=== PATIENT | female | born 1990 | race Caucasian/White ===

== ENCOUNTER 2019-11-12 15:33 | Outpatient (CLI) | payer OTHER, SELFPAY ==
--- NOTE | ~2019-11-12 | XR_ITS ---
EXAMINATION: XR knee RT min 4V DATE: 11/12/2019 15:57 INDICATION: Right knee pain and swelling TECHNIQUE: Four views of the right knee were obtained. COMPARISON: None. FINDINGS: Alignment is normal. No fracture or osteochondral lesion. Joint spaces are normal with no e rosions. There is a moderate size knee joint effusion. Soft tissues are unremarkable. IMPRESSION: 1. Moderate size knee joint effusion without acute osseous abnormality. Reviewed, dictated and finalized at location A.
== END 2019-11-12 15:34 | disposition home or self-care (01) ==
PROVIDERS: PCP Family Medicine; Visit Provider Physician Assistant
DX: M25.461 Effusion, right knee (principal)
CPT/HCPCS: 73564

== ENCOUNTER 2020-12-18 13:59 | Outpatient (CLI) | payer OTHER, SELFPAY ==
[2020-12-18] VITALS (7 sets, daily range): BP systolic 105–130; BP diastolic 55–75; PULSE 73–88
[2020-12-18 14:57] LABS: Basophils Percent Auto 0.3 % (0.2-1.2); Eosinophils Absolute Auto 0.1 K/mm3 (0-0.3); Eosinophils Percent Auto 0.8 % (0-4.4); Hematocrit 35.4 % (37.0-47.0); Hemoglobin 11.9 g/dL (12.0-15.0); Immature Granulocyte Absolute 0.12 K/mm3 (0.00-0.031); Immature Granulocyte Percent A 1.1 % (0-0.5); Lymphocytes Percent Auto 17.4 % (18.3-44.2); Mean Corpuscular HGB Conc 33.6 g/dl (32-36); Mean Corpuscular Hemoglobin 31.9 pg (26-34); Mean Corpuscular Volume 94.9 fl (80-100); Mean Platelet Volume 10.1 fl (7.4-10.4); Monocytes Absolute Auto 0.9 K/mm3 (0.1-0.6); Monocytes Percent Auto 7.8 % (2.6-8.5); Neutrophils Percent Auto 72.6 % (45.5-73.1); Platelet Count Result 231 k/mm3 (150-375); Red Blood Count 3.73 M/mm3 (4.2-5.4); Red Cell Distribution Width 13.1 % (11.5-14.5)
[2020-12-18 14:59] LABS: Add Urine Microscopic? YES; Appearance Urine Clear (Clear); Bilirubin Urine Negative (Negative); Blood Urine Negative (Negative); Color Urine Straw (Yellow); Glucose Urine UA Negative (Negative); Ketones Urine Negative (Negative); Leukocyte Esterase Ur Trace LEU/UL (NEGATIVE); Nitrate Urine Negative (Negative); Protein Urine Negative (Negative); RBC Urine 0-2 /hpf (0-2); Specific Grav Ur 1.005 (1.001-1.035); Squamous Epithelial Cell Urine Moderate /hpf (Few); Urobilinogen Urine Negative mg/dL (<2.0); WBC Urine 0-3 /hpf (0-3)
[2020-12-18 15:05] LABS: Creatinine Urine 24.9 mg/dL; Total Protein Urine Random 13 mg/dL; Ur Ttl Prot Creatinine Ratio 0.52 mg/mg (0-0.20)
[2020-12-18 15:08] LABS: Alanine Aminotransferase 22 U/L (4-35); Albumin Level 3.7 g/dL (3.5-5.1); Alkaline Phosphatase 106 U/L (38-126); Anion Gap 7 mmol/L (8-16); Aspartate Amino Transferase 26 U/L (14-36); Bilirubin,Total 0.1 mg/dL (0.2-1.3); Blood Urea Nitrogen 10 mg/dL (7-17); Carbon Dioxide 18 mmol/L (22-30); Chloride 105 mmol/L (98-107); Estimated Glomerular Filt Rate > 60; Glucose 113 mg/dL (65-110); Potassium 3.8 mmol/L (3.4-5.0); Sodium 130 mmol/L (137-145); Uric Acid 4.5 mg/dL (2.5-7.5)
== END 2020-12-18 15:52 | disposition home or self-care (01) ==
LOC: ANHOBOP 14:24 → ANHOBPP 14:24
PROVIDERS: PCP Family Medicine; Visit Provider Advanced Practice Midwife
DX: O13.9 Gestational [pregnancy-induced] hypertension without significant proteinuria, unspecified trimester (principal); Z3A.00 Weeks of gestation of pregnancy not specified
CPT/HCPCS: 36415; 59025; 80053; 81001; 82570; 84156; 84550; 85025; 87086; 99199

== ENCOUNTER 2020-12-19 15:10 | Outpatient (NON) | payer OTHER, SELFPAY ==
[2020-12-19 15:30] VITALS: BMI 29.9
[2020-12-19 16:01] LABS: Collection Time Urine 24 HOURS
[2020-12-19 16:05] LABS: Patient Weight 185 Lbs; Total Volume 24 Hour Urine 3200 ml
[2020-12-19 16:21] LABS: Specific Gravity Ur 1.011
[2020-12-19 16:25] LABS: Creatinine Clearance Urine 122.7 ml/min (75-125); Creatinine Urine 55.4 mg/dL; Total Protein Urine 24 Hr 448 mg/24hr (28-141); Total Protein Urine Random 14 mg/dL
== END 2020-12-19 15:11 | disposition home or self-care (01) ==
LOC: ANHOBOP 15:21
PROVIDERS: PCP Family Medicine; Visit Provider Advanced Practice Midwife
DX: Z34.90 Encounter for supervision of normal pregnancy, unspecified, unspecified trimester (principal); Z3A.00 Weeks of gestation of pregnancy not specified
CPT/HCPCS: 81050; 82575; 84156

== ENCOUNTER 2020-12-22 10:55 | Outpatient (CLI) | payer OTHER, SELFPAY ==
[2020-12-22 11:14] VITALS: BP 122/68; PULSE 93
[2020-12-22 11:30] VITALS: BP 112/65; PULSE 90
[2020-12-22 11:53] LABS: Basophils Percent Auto 0.3 % (0.2-1.2); Eosinophils Absolute Auto 0.1 K/mm3 (0-0.3); Eosinophils Percent Auto 0.8 % (0-4.4); Hemoglobin 12.1 g/dL (12.0-15.0); Immature Granulocyte Absolute 0.16 K/mm3 (0.00-0.031); Immature Granulocyte Percent A 1.4 % (0-0.5); Lymphocytes Absolute Auto 1.79 K/mm3 (0.9-3.2); Lymphocytes Percent Auto 15.6 % (18.3-44.2); Mean Corpuscular HGB Conc 32.7 g/dl (32-36); Mean Corpuscular Volume 94.9 fl (80-100); Mean Platelet Volume 10.1 fl (7.4-10.4); Monocytes Absolute Auto 0.9 K/mm3 (0.1-0.6); Monocytes Percent Auto 8.2 % (2.6-8.5); Neutrophils Absolute Auto 8.5 K/mm3 (1.3-6.7); Neutrophils Percent Auto 73.7 % (45.5-73.1); Platelet Count Result 234 k/mm3 (150-375); Red Cell Distribution Width 13.2 % (11.5-14.5); White Blood Count 11.5 K/mm3 (4.5-10.0)
[2020-12-22 11:54] VITALS: BP 113/67; PULSE 93
[2020-12-22 12:06] LABS: Alanine Aminotransferase 20 U/L (4-35); Albumin Level 3.8 g/dL (3.5-5.1); Alkaline Phosphatase 118 U/L (38-126); Anion Gap 4 mmol/L (8-16); Aspartate Amino Transferase 27 U/L (14-36); Bilirubin,Total 0.4 mg/dL (0.2-1.3); Blood Urea Nitrogen 11 mg/dL (7-17); Calcium 9.2 mg/dL (8.4-10.2); Carbon Dioxide 22 mmol/L (22-30); Chloride 108 mmol/L (98-107); Estimated Glomerular Filt Rate > 60; Glucose 77 mg/dL (65-110); Sodium 134 mmol/L (137-145); Uric Acid 3.9 mg/dL (2.5-7.5)
== END 2020-12-22 12:40 | disposition home or self-care (01) ==
LOC: ANHOBOP 11:00 → ANHOBPP 11:01
PROVIDERS: Advanced Practice Midwife; PCP Family Medicine; Visit Provider Obstetrics & Gynecology
DX: O13.9 Gestational [pregnancy-induced] hypertension without significant proteinuria, unspecified trimester (principal); Z3A.00 Weeks of gestation of pregnancy not specified
CPT/HCPCS: 36415; 59025; 80053; 84550; 85025; 99199

== ENCOUNTER 2020-12-24 00:01 | Inpatient (IN) | payer OTHER, SELFPAY ==
[2020-12-24] VITALS (53 sets, daily range): BP systolic 94–138; BP diastolic 48–113; PULSE 62–101; RESP 16–18; TEMP 36.4–37.3; O2SAT 98–100; BMI 29.9
--- NOTE | 2020-12-24 00:01 | LDADM ---
This patient, Frida Britton, was admitted to Labor/Delivery/Recovery 109 on 12/24/20 at 00:01. Plans for labor, pain management and were discussed with patient. Patient/family oriented to hospital policies and general routines including ID bracelet, bed and alarms, visiting hours, pain management, procedures, bathroom and other care routines, personal items, smoking policy, room service/diet and guest tray routines, security routines, and visiting hours. Patient/Family are encouraged to report perceived risks to care and to ask questions if they do not understand what they are told or what they should do. See OBIX for further documentation.
[2020-12-24 00:45] LABS: Basophils Percent Auto 0.3 % (0.2-1.2); Eosinophils Absolute Auto 0.1 K/mm3 (0-0.3); Eosinophils Percent Auto 0.9 % (0-4.4); Hematocrit 37.4 % (37.0-47.0); Hemoglobin 12.6 g/dL (12.0-15.0); Immature Granulocyte Absolute 0.14 K/mm3 (0.00-0.031); Immature Granulocyte Percent A 1.2 % (0-0.5); Lymphocytes Absolute Auto 2.95 K/mm3 (0.9-3.2); Lymphocytes Percent Auto 25.5 % (18.3-44.2); Mean Corpuscular HGB Conc 33.7 g/dl (32-36); Mean Corpuscular Hemoglobin 31.8 pg (26-34); Mean Corpuscular Volume 94.4 fl (80-100); Mean Platelet Volume 9.9 fl (7.4-10.4); Monocytes Absolute Auto 0.9 K/mm3 (0.1-0.6); Monocytes Percent Auto 8.1 % (2.6-8.5); Neutrophils Absolute Auto 7.4 K/mm3 (1.3-6.7); Platelet Count Result 236 k/mm3 (150-375); Red Blood Count 3.96 M/mm3 (4.2-5.4); White Blood Count 11.6 K/mm3 (4.5-10.0)
[2020-12-24] MEDS: DINOPROSTONE 10 MG VAG INSERT VAGINAL (00:55)
[2020-12-24 01:02] LABS: Glucose Point of Care 110 mg/dl (65-105)
[2020-12-24] MEDS: LACTATED RINGERS 1,000 ML 125 ML IV CONT ×3 (01:05→19:11)
[2020-12-24] MEDS: AMPICILLIN 2 GM/NS 100 ML 2 GM/100 ML BAG IVPB (01:05)
--- NOTE | 2020-12-24 03:31 | WPDANESEPP ---
Anes - Eval Pre Procedure Procedure: Labor epidural Date/Time: 12/24/20 03:31 Surgeon: Iron Preop Diagnosis: Abd pain with contractions Pre Op Diagnosis: IOL Patient Data Age: 30 Gender: F Height: 1.68 m Weight: 84 kg Last Vital Signs Temp 97.5 F L 12/24/20 00:47 Pulse 87 12/24/20 03:15 Resp 18 12/24/20 00:47 BP 103/54 L 12/24/20 03:15 Allergies Allergy/AdvReac Type Severity Reaction Status Date / Time peppermint Allergy Intermediate HIVES, Verified 12/15/20 12:44 swelling of eyes Home Medications Medication Instructions Recorded Confirmed Type cholecalciferol (vitamin D3) 10 10 mcg PO DAILY 12/26/19 12/24/20 History mcg/drop (400 unit/drop) oral drops prenat.vits,raad,xqy-jyof-ntqkw 1 tablet PO DAILY 12/26/19 12/24/20 History aspirin [Aspirin Child] 81 mg PO DAILY 12/24/20 12/24/20 History Laboratory Tests 12/24/20 12/24/20 12/24/20 00:34 00:34 00:34 WBC 11.6 K/mm3 H K/mm3 (4.5-10.0) RBC 3.96 M/mm3 L M/mm3 (4.2-5.4) Hgb 12.6 g/dL g/dL (12.0-15.0) Hct 37.4 % % (37.0-47.0) MCV 94.4 fl fl (80-100) MCH 31.8 pg pg (26-34) MCHC 33.7 g/dl g/dl (32-36) RDW 13.0 % % (11.5-14.5) Plt Count 236 k/mm3 k/mm3 (150-375) MPV 9.9 fl fl (7.4-10.4) Immature Gran % (Auto) 1.2 % H % (0-0.5) Neut % (Auto) 64.0 % % (45.5-73.1) Lymph % (Auto) 25.5 % % (18.3-44.2) [place] % (Auto) 8.1 % % (2.6-8.5) Eos % (Auto) 0.9 % % (0-4.4) Baso % (Auto) 0.3 % % (0.2-1.2) Lymph # (Auto) 2.95 K/mm3 K/mm3 (0.9-3.2) [place] # (Auto) 0.9 K/mm3 H K/mm3 (0.1-0.6) Eos # (Auto) 0.1 K/mm3 K/mm3 (0-0.3) Baso # (Auto) 0.0 K/mm3 K/mm3 (0.0-0.1) Abs Immat Gran (auto) 0.14 K/mm3 H K/mm3 (0.00-0.031) Absolute Neuts (auto) 7.4 K/mm3 H K/mm3 (1.3-6.7) Absolute Nucleated RBC 0.0 K/mm3 K/mm3 (0.0-0.012) Nucleated RBC % 0.0 % % (0.0-0.2) POC Capillary Glucose RPR Pending Blood Type O Positive Antibody Screen Negative 12/24/20 00:47 WBC RBC Hgb Hct MCV MCH MCHC RDW Plt Count MPV Immature Gran % (Auto) Neut % (Auto) Lymph % (Auto) [place] % (Auto) Eos % (Auto) Baso % (Auto) Lymph # (Auto) [place] # (Auto) Eos # (Auto) Baso # (Auto) Abs Immat Gran (auto) Absolute Neuts (auto) Absolute Nucleated RBC Nucleated RBC % POC Capillary Glucose 110 mg/dl H mg/dl (65-105) RPR Blood Type Antibody Screen Patient hx anesthesia problems: none Family hx anesthesia problems: none 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 Family History Family History Father Family history of gout Family history of hypercholesterolemia Mother Family history of diabetes mellitus in first degree relative Grandparent Family history of diabetes mellitus in first degree relative Family history of hypercholesterolemia Heart disease Acute myocardial infarction Social History Social History Smoking status: Never smoker Alcohol intake: current Alcohol use details: a few drinks per year Substance use: never Spiritual care concerns: No Exam Day of Procedure 12/24/20 03:31 Patient weight: overweight Airway: Mallampati scale class II Neurological: alert and oriented
[2020-12-24] MEDS: AMPICILLIN 1 GM/NS 50 ML 1 GM/50 ML BAG IVPB ×4 (05:15→17:31)
[2020-12-24 08:00] LABS: Glucose Point of Care 85 mg/dl (65-105)
[2020-12-24 08:36] LABS: Rapid Plasma Reagin Non-Reactive (NonReactive)
--- NOTE | 2020-12-24 09:10 | WPDOBADMIT ---
Obstetrics - Admit Note Admission Note: record reviewed. No pertinent additions to the history and/or any subsequent changes in the physical findings that are not consistent with the expected course of the were found. MIL, Preeclampsia, asymptomatic, bp normotensive at rest Additions to the history and/or subsequent changes in the physical findings follow. None.
[2020-12-24 09:37] LABS: Glucose Point of Care 86 mg/dl (65-105)
[2020-12-24] MEDS: OXYTOCIN 30 UNITS/NS 500 ML 30 UNITS/500 ML BAG IV CONT (14:03)
[2020-12-24 14:10] LABS: Glucose Point of Care 115 mg/dl (65-105)
--- NOTE | 2020-12-24 17:31 | PM.OBPNLAB ---
Pain Control Date/time seen: 12/24/20 17:31 Pain control: tolerating well Pelvic Exam Dilation (cm): 2 Effacement (%): 60 station: -2 Amniotic membrane status: Ruptured Comments: minimal amount of clear odorless fluid Contractions Monitor mode: External Status status: Category l
[2020-12-24] MEDS: fentaNYL CITRATE INJ (*CRX) 100 MCG/2 ML VIAL 50 MCG IV PUSH (18:57)
--- NOTE | 2020-12-24 20:34 | PM.OBPRVD ---
OB - Delivery Note Procedure Delivery date: 12/24/20 Procedure: vaginal delivery events: Pre-Eclampsia Intrapartal events: None Induction method: AROM, per pitocin protocol and per cervidil protocol Delivery monitor: external FHT and external uterine Route of delivery: Laceration Description: Perineal - 1st Degree Delivery repair: vicryl Anesthesia type: Epidural Disposition: floor [place] Baby Date of : 12/24/20 Time of : 20:11 Weeks of gestation at delivery: 37 Infant gender: Female presentation: vertex position: Left Occiput Anterior Placenta delivery description: Spontaneous cord vessel description: 3 Vessels score one minute: 8 score five minutes: 9 Narrative: mother and baby skin to skin in stable condition
[2020-12-24] MEDS: IBUPROFEN 600 MG TABLET PO (20:58)
[2020-12-24] MEDS: OXYTOCIN 30 UNITS/NS 500 ML 30 UNITS/500 ML BAG 125 UNITS IV CONT (21:10)
[2020-12-25] MEDS: IBUPROFEN 600 MG TABLET PO ×3 (04:19→23:17)
[2020-12-25 04:21] VITALS: BP 111/62; PULSE 65; RESP 14; TEMP 36.7; O2SAT 98
[2020-12-25 05:18] LABS: Hematocrit 30.9 % (37.0-47.0); Hemoglobin 10.5 g/dL (12.0-15.0)
--- NOTE | 2020-12-25 07:45 | PM.OBPNVD ---
OB - PN: Subj Subjective Date/time seen: 12/25/20 07:45 Patient comments: no complaints baby status: doing well [place] feeding status: exclusively breast feeding OB - PN: Obj Data Labs CBC & Chem 7: 12/25/20 04:35 Labs: Laboratory Results - last 24 hr 12/24/20 12/24/20 12/24/20 00:34 07:57 09:28 Hgb Hct POC Capillary Glucose 85 86 RPR Non-reactive 12/24/20 12/25/20 14:01 04:35 Hgb 10.5 L Hct 30.9 L POC Capillary Glucose 115 H RPR OB - PN A/P Plan day: 1 Plan: routine care Time Spent With Patient Time: Total time spent is greater than 50% in coordination of care (as documented) at patient's floor/unit and/or counseling patient: Review of Systems Review of Systems: All systems reviewed & are unremarkable except as noted in HPI and below Exam Const: General: cooperative Psych: Attitude: cooperative Thought process: Normal thought process present Thought content: Yes Normal thought content present Insight: Good insight present (Psych) Judgement: Good judgement present (Psych)
[2020-12-25] MEDS: MULTIVIT/MIN/PREN/FOL AC/IRON TABLET 1 TAB PO (07:59)
[2020-12-25] MEDS: DOCUSATE SODIUM 100 MG CAPSULE PO (07:59)
[2020-12-25 08:45] VITALS: BP 121/66; PULSE 71; RESP 16; TEMP 36.4; O2SAT 99
[2020-12-25 11:48] VITALS: BP 113/67; PULSE 66; RESP 16; TEMP 36.6; O2SAT 97
--- NOTE | 2020-12-25 15:15 | WPDANLDPN2 ---
Anes-Prog Note L&D Date/Time: 12/25/20 15:15 Comfortable throughout: labor and delivery Neuraxial method: epidural Epidural/Spinal procedure site: clean & non-tender Neuro status: Neuro function grossly intact. Cardiovascular status: normal Respiratory status: normal Airway patency: baseline Mental status: baseline Post-Op hydration status: normal Vital Signs: Last Vital Signs Temp 36.6 C 12/25/20 11:48 Pulse 66 12/25/20 11:48 Resp 16 12/25/20 11:48 BP 113/67 12/25/20 11:48 Pulse Ox 97 12/25/20 11:48 Pain score (VAS): 05/24 I/O: Intake & Output 12/24/20 12/25/20 12/25/20 23:59 07:59 15:59 Intake Total 2350 300 1000 Output Total 490 1000 1000 Balance 1860 -700 0 Post-procedural complaints: none Patient feedback: Patient satisfied with anesthetic care.
[2020-12-25 16:35] VITALS: BP 117/66; PULSE 73; RESP 18; TEMP 36.2
[2020-12-25 20:00] VITALS: BP 126/71; PULSE 79; RESP 16; TEMP 36.1; O2SAT 98
--- NOTE | 2020-12-25 20:00 | PC.NURSE ---
Patient viewed the discharge video Mother & Baby Care, The First Two Weeks online. Patient was given the opportunity and encouraged to ask questions. Patient verbalized understanding of information shared and has been given the mother/baby guide for home reference.
[2020-12-25 23:18] VITALS: BP 117/68; PULSE 77
[2020-12-26 03:08] VITALS: BP 116/58; PULSE 55
[2020-12-26 08:10] VITALS: BP 105/64; PULSE 58; RESP 16; TEMP 36.5; O2SAT 98
--- NOTE | 2020-12-26 08:45 | P.PNOB_ITS ---
OB - PN: Subj Subjective Date/time seen: 12/26/20 08:45 Patient comments: no complaints baby status: doing well and nursing well [place] feeding status: exclusively breast feeding OB - PN: Obj Data Labs CBC & Chem 7: 12/25/20 04:35 OB - PN A/P Assessment and Plan (1) , delivered: Code(s): O80 - Encounter for full-term uncomplicated delivery Status: Acute (2) Gestational hypertension: Code(s): O13.9 - Gestational [-induced] hypertension without significant proteinuria, unspecified trimester Status: Inactive Plan day: 2 Plan: routine care and discharge home Comments: BP check 1 week. Time Spent With Patient Time: Total time spent is greater than 50% in coordination of care (as documented) at patient's floor/unit and/or counseling patient: Time with patient: less than 15 minutes Exam Narrative: NAD abdomen soft, nontender, fundus firm below the umbilicus Extremities nontender, 1+ edema
--- NOTE | 2020-12-26 08:48 | PM.DS ---
DS: Admitting Diagnosis Admitting Diagnosis PIH, IOL DS: Discharge Diagnosis Discharge Diagnosis (1) , delivered: Code(s): O80 - Encounter for full-term uncomplicated delivery Status: Acute (2) Gestational hypertension: Code(s): O13.9 - Gestational [-induced] hypertension without significant proteinuria, unspecified trimester Status: Acute DS: Summary Hospital Course Reason for hospitalization: IOL for PIH Hospital Course: Frida was admitted for IOL for PIH with elevated BPs in office at term. She had an uncomplicated induction, delivery, and course with normal BPs. Status at Discharge Functional status at discharge: independent ambulation Time Spent with Patient Time attestation: Total time spent providing and/or coordinating discharge services: Time spent: Less than 30 minutes DS: Data Data Completed and Pending Pending studies at discharge: Pending at discharge 12/24/20 20:11 Surgical [PTH] Routine Discharge Plan Discharge Attending physician on discharge: Mary Viera Discharging Clinician: Mary Viera Anticipated Discharge Date/Time: 12/26/20 12:00 Patient Disposition: Home, Self-Care Activity: pelvic rest Diet: as tolerated Patient Instructions: Antibiotic Form Stand Alone Forms: General Discharge Information Follow-up/Referrals: Rock Perdue MD [Physician] - 1 Week Discharge Medications: Continued cholecalciferol (vitamin D3) [Baby Vitamin D3] 10 mcg/drop (400 unit/drop) drops 10 mcg PO DAILY RF: 0 prenat.vits,raad,lbk-wiov-ytyne Tablet 1 tablet PO DAILY RF: 0 Discontinued aspirin [Aspirin Child] 81 mg Tablet,Chewable 81 mg PO DAILY RF: 0 Date of admission: 12/24/20 00:01 Primary Care Provider: Zita Adorno Admitting Provider: Rock Perdue Attending physician on admission: Rock Perdue Condition: Stable
[2020-12-26] MEDS: BENZOCAINE 20% AER SPR (*SP) 56 GM CAN 1 SPRAY TOPICAL (10:11)
[2020-12-26] MEDS: DOCUSATE SODIUM 100 MG CAPSULE PO (10:11)
[2020-12-26] MEDS: LANOLIN (LANSINOH) 7.5 GM CREAM 1 APPLIC TOPICAL (10:12)
[2020-12-26] MEDS: WITCH HAZEL 40 PADS 1 PAD TOPICAL (10:12)
[2020-12-26] MEDS: IBUPROFEN 600 MG TABLET PO (10:12)
[2020-12-26 10:15] VITALS: PULSE 58; RESP 16; O2SAT 98
[2020-12-28 10:08] VITALS: BP 119/62; PULSE 72; RESP 16; TEMP 36.9; O2SAT 98
== END 2020-12-26 13:10 | disposition home or self-care (01) | DRG 807 ==
LOC: ANHOB2 12-26 08:48 → ANHLDR 12-28 11:40 → ANHOB2 12-28 11:40
PROVIDERS: Advanced Practice Midwife; Admitting Provider Obstetrics & Gynecology; PCP Family Medicine; Visit Provider Obstetrics & Gynecology
DX: O14.94 Unspecified pre-eclampsia, complicating childbirth (principal); Z37.0 Single live birth; Z3A.37 37 weeks gestation of pregnancy; O70.0 First degree perineal laceration during delivery; O99.824 Streptococcus B carrier state complicating childbirth; O62.3 Precipitate labor; O24.420 Gestational diabetes mellitus in childbirth, diet controlled
CPT/HCPCS: 36415; 59025; 80053; 82948; 84550; 85014; 85018; 85025; 86592; 86850; 86900; 86901; 88307; 99199; A9270; J0290; J2590; J2795; J3010; J7120

== ENCOUNTER → 2021-04-13 08:59 | Outpatient (REF) | payer OTHER, SELFPAY | LOC: ANHLAB 08:59 | PROVIDERS: PCP Family Medicine; Visit Provider Nurse Practitioner | DX: D22.4 Melanocytic nevi of scalp and neck (principal) | CPT/HCPCS: 88305 ==

== ENCOUNTER 2021-07-26 22:52 | Emergency (ER) | payer OTHER, SELFPAY ==
--- NOTE | ~2021-07-26 | XR_ITS ---
XR chest 2V DATE: 07/26/2021 23:59 INDICATION: Chest pain TECHNIQUE: PA and lateral views COMPARISON: None FINDINGS: Normal heart size. No hilar or mediastinal enlargement. No pulmonary infiltrate or consolid ation, pleural effusion or pulmonary vascular congestion or pneumothorax. Mild upper thoracic levoscoliosis. IMPRESSION: No active cardiopulmonary disease Reviewed, dictated and finalized at location A.
[2021-07-26 23:00] VITALS: BP 133/89; PULSE 72; RESP 14; TEMP 36.8; O2SAT 99
--- NOTE | 2021-07-26 23:05 | ECG_ITS ---
Measurements Intervals [place] Rate: 72 P: 45 HI: 146 QRS: 78 QRSD: 102 T: 53 QT: 399 QTc: 439 Interpretive Statements SINUS RHYTHM NORMAL EKG NO PREVIOUS ECG AVAILABLE FOR COMPARISON Electronically Signed On 07-27-2021 18:12:29 CDT by Tiffany Gregory M.D.
[2021-07-26 23:51] LABS: Basophils Percent Auto 0.4 % (0.2-1.2); Eosinophils Absolute Auto 0.2 K/mm3 (0-0.3); Eosinophils Percent Auto 1.7 % (0-4.4); Hematocrit 37.7 % (37.0-47.0); Hemoglobin 12.3 g/dL (12.0-15.0); Immature Granulocyte Absolute 0.03 K/mm3 (0.00-0.031); Immature Granulocyte Percent A 0.3 % (0-0.5); Lymphocytes Absolute Auto 3.73 K/mm3 (0.9-3.2); Lymphocytes Percent Auto 40.3 % (18.3-44.2); Mean Corpuscular HGB Conc 32.6 g/dl (32-36); Mean Corpuscular Hemoglobin 31.1 pg (26-34); Mean Corpuscular Volume 95.4 fl (80-100); Mean Platelet Volume 10.1 fl (7.4-10.4); Monocytes Absolute Auto 0.9 K/mm3 (0.1-0.6); Monocytes Percent Auto 9.8 % (2.6-8.5); Neutrophils Absolute Auto 4.4 K/mm3 (1.3-6.7); Neutrophils Percent Auto 47.5 % (45.5-73.1); Platelet Count Result 283 k/mm3 (150-375); Red Blood Count 3.95 M/mm3 (4.2-5.4); White Blood Count 9.3 K/mm3 (4.5-10.0)
[2021-07-26 23:57] LABS: Alanine Aminotransferase 19 U/L (4-35); Albumin Level 4.5 g/dL (3.5-5.1); Alkaline Phosphatase 69 U/L (38-126); Anion Gap 9 mmol/L (8-16); Aspartate Amino Transferase 26 U/L (14-36); Bilirubin,Total 0.1 mg/dL (0.2-1.3); Blood Urea Nitrogen 22 mg/dL (7-17); Calcium 8.5 mg/dL (8.4-10.2); Carbon Dioxide 25 mmol/L (22-30); Chloride 104 mmol/L (98-107); Estimated CRCL calculation 89 ml/min; Estimated Glomerular Filt Rate > 60; Glucose 97 mg/dL (65-110); INR 1.1; Lipase 84 U/L (23-300); Partial Thromboplastin Time 35.3 SECONDS (22.3-36.8); Potassium 3.7 mmol/L (3.4-5.0); Prothrombin Time 13.6 Seconds (11.1-14.7); Sodium 138 mmol/L (137-145)
[2021-07-27 00:07] LABS: Troponin I < 0.012 ng/mL (0.000-0.034)
--- NOTE | 2021-07-27 00:21 | ED.CHESTPAIN ---
HPI - Chest Pain General Chief Complaint: Chest Pain Stated Complaint: CP Time Seen by Provider: 07/26/21 23:42 Source: patient History of Present Illness HPI narrative: Patient presents with intermittent chest pain. Symptom has been present for approximately the last 2 to 3 days. She most notes that at night when laying flat has been alleviated with sitting up. Is not associated with shortness of breath nausea vomiting or diaphoresis. She has not noted any increase with physical activity. She denies any significant family history of cardiac disease, denies any recent hospitalizations session therapy use, prior history of blood clots Related Data Allergies Allergy/AdvReac Type Severity Reaction Status Date / Time No Known Allergies Allergy Verified 07/27/21 01:02 Review of Systems Review of Systems: CONSTITUTIONAL: Denies fever, chills, or sweats. EYES: Denies visual changes, redness, or discharge. ENT: Denies rhinorrhea, congestion, sore throat, or otalgia. CARDIOVASCULAR: Denies chest pain, palpitations, or edema. RESPIRATORY: Denies cough or dyspnea. GASTROINTESTINAL: Denies abdominal pain, nausea, vomiting, or diarrhea. GENITOURINARY: Denies dysuria or hematuria. SKIN: Denies rash or itching. MUSCULOSKELETAL: Denies back pain, joint pain, or myalgia. NEUROLOGIC: Denies headache, numbness, dizziness, or weakness. PSYCHIATRIC: Denies anxiety or depression. All systems reviewed & are unremarkable except as noted in HPI and below PMFSH Past Medical History Medical History (Updated 07/27/21 @ 01:28 by Anil Bhatt MD) Patient denies significant medical history Social History Social History (Updated 07/27/21 @ 00:24 by Anil Bhatt MD) Living arrangements: with family Exam Narrative: GENERAL: Well-appearing, well-nourished, and in no acute distress. HEAD: Normocephalic, atraumatic. EYES: PERRLA and EOMI. ENT: Nares clear, no rhinorrhea or epistaxis. Mucous membranes moist. NECK: Supple. No masses. No JVD CHEST: Clear to auscultation. No respiratory distress. No wheezes rales or rhonchi HEART: Regular rate and rhythm. No murmur heard. Normal peripheral pulses. ABDOMEN: Soft, nontender, nondistended, normal active bowel sounds. EXTREMITIES: Normal range of motion. No edema. SKIN: Warm, dry, no rash. NEURO: No focal deficits. Alert and oriented x3. PSYCH: Normal mood and affect. Course Reevaluation(s) Reevaluation #1: Patient is resting comfortably results and plan reviewed with patient. Patient is comfortable outpatient plan. Date: 07/27/21 Time: 01:26 Vital Signs Vital signs: Vital Signs Temperature 36.8 C 07/26/21 23:00 Pulse Rate 72 07/26/21 23:00 Respiratory Rate 14 07/26/21 23:00 Blood Pressure 133/89 07/26/21 23:00 Pulse Oximetry 99 07/26/21 23:00 Temperature 36.8 C 07/26/21 23:00 Pulse Rate 60 07/27/21 01:55 Respiratory Rate 15 07/27/21 01:55 Blood Pressure 111/63 07/27/21 01:55 Pulse Oximetry 99 07/27/21 01:55 MDM - Chest Pain MDM Narrative Medical decision making narrative: H&P as above, vss, pt looks clinically well, exam reassuring, labs clinically unremarkable, img without acute process, additional labs/img considered, symptomatic relief available as needed, on reevaluation pt continues to looks clinically well. Suspect reflux, dns ACS, PE, dissection, pneumothorax. plan to tx/monitor as op w/ pcm f/u findings/plan discussed with pt, pt agree/comfortable with plan, return precautions given Lab Data Result diagrams: 07/26/21 23:20 07/26/21 23:20 Labs: Lab Results 07/26/21 07/26/21 07/26/21 Range/Units 23:20 23:20 23:20 WBC 9.3 (4.5-10.0) K/mm3 RBC 3.95 L (4.2-5.4) M/mm3 Hgb 12.3 (12.0-15.0) g/dL Hct 37.7 (37.0-47.0) % MCV 95.4 (80-100) fl MCH 31.1 (26-34) pg MCHC 32.6 (32-36) g/dl RDW 12.0 (11.5-14.5) % Plt Count 283 (150-375) k/mm3 MPV 10.1 (7.4-10.4
[2021-07-27] MEDS: MAG HYDROX/AL HYDROX/SIMETH 30 ML UDC PO (01:08)
[2021-07-27 01:13] VITALS: PULSE 70
[2021-07-27 01:55] VITALS: BP 111/63; PULSE 60; RESP 15; O2SAT 99
== END 2021-07-27 01:59 | disposition home or self-care (01) ==
PROVIDERS: Emergency Provider Emergency Medicine; PCP Family Medicine
DX: R07.89 Other chest pain (principal); K21.00 Gastro-esophageal reflux disease with esophagitis, without bleeding
CPT/HCPCS: 36415; 71046; 80053; 81025; 83690; 84484; 85025; 85610; 85730; 93005; 99284; A9270

== ENCOUNTER 2021-08-12 07:44 | Outpatient (CLI) | payer OTHER, SELFPAY ==
--- NOTE | 2021-08-12 07:50 | ECHO_ITS ---
Patient Info Name: Frida Britton Age: 31 years : 1990 Gender: Female Ht: 66 in Wt: 158 lbs BSA: 1.84 m2 HR: 60 bpm BP: 118 / 85 mmHg Technical Quality: Good Exam Date: 08/12/2021 8:31 AM Exam Location: [facility] Patient Status: Outpatient Admit Date: 08/12/2021 Staff Ordering Physician: Zita Adorno MD General Internal Medicine Doctor: Aleyda Valencia RDCS Attending Provider: Zita Adorno MD Referring Physician: Tila DANIEL; Exam Type: CA echo doppler color flow Study Info Indications R55 - Syncope and collapse Complete two-dimensional, color flow and Doppler transthoracic echocardiogram is performed. Summary 1. Complete two-dimensional, color flow and Doppler transthoracic echocardiogram is performed. 2. Left ventricular chamber dimension is normal. 3. Left ventricular systolic function is normal, estimated at 60-65%. 4. The left ventricular diastolic function is normal. 5. E/e' 5 is not elevated. 6. Global longitudinal strain is normal at -19.2%. 7. No pulmonary hypertension, estimated pulmonary arterial systolic pressure is 27 mmHg. Left Ventricle E/e' 5 is not elevated. Global longitudinal strain is normal at -19.2%. Left ventricular chamber dimension is normal. Left ventricular systolic function is normal, estimated at 60-65%. The left ventricular diastolic function is normal. Right Ventricle Right ventricular chamber dimension is normal. Right ventricular systolic function is normal. Left Atria Left atrial chamber dimension is normal. Right Atria Right atrial chamber dimension is normal. Aortic Valve The aortic valve is trileaflet. There is no aortic valve stenosis. There is no aortic valve regurgitation. Pulmonic Valve There is no pulmonic regurgitation. Mitral Valve There is no mitral valve stenosis. There is no mitral valve regurgitation. Tricuspid Valve There is no tricuspid valve regurgitation. No pulmonary hypertension, estimated pulmonary arterial systolic pressure is 27 mmHg. Pericardium/Pleural There is no pericardial effusion. Inferior Vena Cava Normal inferior vena cava with >50% collapse upon inspiration consistent with normal right atrial pressure, 5 mmHg. Aorta The aortic root size at the sinus of Valsalva is normal. Left Ventricular Outflow Tract Name Value Normal LVOT 2D LVOT Diameter 2.0 cm LVOT Doppler LVOT Peak Gradient 3 mmHg LVOT Mean Gradient 2 mmHg LVOT VTI 19 cm LVOT VTI/AV VTI Ratio 0.9 LVOT Stroke Volume 58 ml LVOT CO 3.8 l/min LVOT CI 2.1 l/min/m2 Pulmonic Valve Name Value Normal RVOT Doppler RVOT Peak Gradient 3 mmHg
== END 2021-08-12 07:45 | disposition home or self-care (01) ==
LOC: ANHCARD 07:46
PROVIDERS: PCP Family Medicine; Visit Provider Family Medicine
DX: R55 Syncope and collapse (principal)
CPT/HCPCS: 93306

== ENCOUNTER 2021-08-17 10:37 | Outpatient (CLI) | payer OTHER, SELFPAY ==
--- NOTE | 2021-08-20 12:25 | WPDHOLTEREM ---
Holter/Event Monitor Holter/Event Monitor Date of procedure: 08/17/21 Holter/Event Procedure: 48 Hr Holter Monitor Indications: Syncope Conclusion: 1. 48 hour holter monitor on 08/17/21. 2. Underlying rhythm is sinus rhythm. HR range 42-152 bpm; average HR 77 bpm. 3. There are 1 premature supraventricular complex and 1 supraventricular couplet. No supraventricular tachycardia. 4. There are 2 premature ventricular complexes. No ventricular tachycardia. 5. No sinoatrial or atrioventricular blocks. No significant pauses greater than 2 seconds. 6. Patient reports symptoms of dizziness which demonstrate sinus rhythm, HR range 96-102 bpm.
== END 2021-08-17 10:38 | disposition home or self-care (01) ==
PROVIDERS: PCP Family Medicine; Visit Provider Family Medicine
DX: R55 Syncope and collapse (principal)
CPT/HCPCS: 93225; 93226

== ENCOUNTER 2021-10-02 14:40 | Emergency (ER) | payer OTHER, SELFPAY ==
--- NOTE | ~2021-10-02 | XR_ITS ---
EXAMINATION: XR chest 2V Exam Date/Time: 10/02/2021 15:08 CDT HISTORY: CHEST PAIN, COUGH; recent exp to mold; hx of asthma as child Comparison: None available. RESULT: Lines, tubes, and devices: None. Lungs and pleura: Clear. Cardiomediastinal silhouette: Stable cardiomediastinal silhouette. Other: No acute osseous or upper abdominal finding. IMPRESSION: No acute cardiopulmonary process. Reviewed, dictated and finalized at location K.
[2021-10-02 14:47] VITALS: BP 128/88; PULSE 80; RESP 12; TEMP 36.2; O2SAT 100
--- NOTE | 2021-10-02 15:08 | ECG_ITS ---
Measurements Intervals [place] Rate: 62 P: 50 [place]: 132 QRS: 80 QRSD: 93 T: 69 QT: 378 QTc: 384 Interpretive Statements SINUS RHYTHM NORMAL ECG Electronically Signed On 10-03-2021 7:48:34 CDT by Rafi Nguyễn D.O.
--- NOTE | 2021-10-02 15:16 | ED.GENADULT ---
HPI - General Adult General Chief complaint: Upper Respiratory Infection Stated complaint: possible mildew exposure Source: patient Mode of arrival: ambulatory Limitations: no limitations History of Present Illness HPI narrative: Patient presents for evaluation of chest pain and cough. She indicates that she was in a basement last night that had mold and mildew. She noted a cough last night. Today she has noted persistent cough, has noted she does not fully get air with inspiration and has some intermittent right sided chest pain. Pt had COVID in May of this year. In July, she began having right sided chest pain. Pain feels like a sharp pinching sensation. She had an EKG which was normal, ECHO which was normal and also wore a 48 hr phototypesetting equipment monitor which she states was normal with a occasional PVC's. She does not feel particularly SOB. She thought that the symptoms she experienced in July may have been 2/2 peppermint oil. Neither she nor her smoke cigarettes or marijuana. She had asthma as a child but thought that she outgrew that. Related Data Home Medications Medication Instructions Recorded Confirmed cholecalciferol (vitamin D3) 10 10 mcg PO DAILY 12/26/19 10/02/21 mcg/drop (400 unit/drop) oral drops prenat.vits,raad,pws-iuxt-ayiiu 1 tablet PO DAILY 12/26/19 10/02/21 Allergies Allergy/AdvReac Type Severity Reaction Status Date / Time peppermint Allergy Intermediate HIVES, Verified 10/02/21 14:48 swelling of eyes Review of Systems Review of Systems: CONSTITUTIONAL: Denies fever, chills, or sweats. EYES: Denies visual changes, redness, or discharge. ENT: Denies rhinorrhea, congestion, sore throat, or otalgia. CARDIOVASCULAR: Reports intermittent right sided chest pain. Denies palpitations, or edema. RESPIRATORY: Reports cough and sensation that she is not fully getting air with inspiration. GASTROINTESTINAL: Denies abdominal pain, nausea, vomiting, or diarrhea. GENITOURINARY: Denies dysuria or hematuria. SKIN: Denies rash or itching. MUSCULOSKELETAL: Denies back pain, joint pain, or myalgia. NEUROLOGIC: Denies headache, numbness, dizziness, or weakness. PSYCHIATRIC: Denies anxiety or depression. 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 Tinea corporis Surgical History Surgical History History of removal of cyst History of removal of skin mole Family History Family History Father Family history of gout Family history of hypercholesterolemia Mother Family history of diabetes mellitus in first degree relative Grandparent Family history of diabetes mellitus in first degree relative Family history of hypercholesterolemia Heart disease Acute myocardial infarction Social History Social History Alcohol intake: current Alcohol use details: a few drinks per year Substance use: never Spiritual care concerns: No Exam Narrative: GENERAL: Well-appearing, well-nourished, and in no acute distress. HEAD: Normocephalic, atraumatic. EYES: PERRLA and EOMI. ENT: Nares clear, no rhinorrhea or epistaxis. Mucous membranes moist. Oropharynx without tonsillar hypertrophy exudate or other lesions. Bilateral TMs pearly sabillon nonbulging NECK: Supple. No adenopathy or masses. No carotid bruits or JVD CHEST: Clear to auscultation. No respiratory distress. No wheezes rales or rhonchi HEART: Regular rate and rhythm. No murmur heard. Normal peripheral pulses. ABDOMEN
== END 2021-10-02 16:25 | disposition home or self-care (01) ==
PROVIDERS: Emergency Provider Nurse Practitioner; PCP Family Medicine
DX: Z77.120 Contact with and (suspected) exposure to mold (toxic) (principal); R07.9 Chest pain, unspecified; J45.909 Unspecified asthma, uncomplicated; Z86.16 Personal history of COVID-19
CPT/HCPCS: 71046; 93005; 99213; G0463

== ENCOUNTER 2021-10-23 16:36 | Emergency (ER) | payer OTHER, SELFPAY ==
[2021-10-23 16:55] VITALS: BP 134/87; PULSE 84; RESP 16; TEMP 36.1; O2SAT 99
--- NOTE | 2021-10-23 16:55 | ED.URI ---
HPI - URI/Sore Throat General Chief Complaint: Upper Respiratory Infection Stated Complaint: sore throat, ear pain Time Seen by Provider: 10/23/21 16:55 Source: patient, RN notes reviewed and old records reviewed Mode of arrival: ambulatory Limitations: no limitations History of Present Illness HPI Narrative: 31 year old female who presents to [facility] care with complaints of experiencing some congestion with scratchy throat and itchy ears which started today. Patient reports no fevers, chills or sweats, denies any acute cough or any shortness of breath. Patient has not taken any OTC medications for her symptoms. Patient does have history of asthma and has inhaler at home but has not had to use it for her present complaint. MD elicited complaint: sore throat and other (ear pain) Onset (ago): hour(s) (8 hours) Treatments prior to arrival: none Related Data Home Medications Medication Instructions Recorded Confirmed cholecalciferol (vitamin D3) 10 10 mcg PO DAILY 12/26/19 10/02/21 mcg/drop (400 unit/drop) oral drops (Baby Vitamin D3) prenat.vits,raad,iur-hpxe-bewab 1 tablet PO DAILY 12/26/19 10/02/21 Allergies Allergy/AdvReac Type Severity Reaction Status Date / Time peppermint Allergy Intermediate HIVES, Verified 10/02/21 14:48 swelling of eyes Review of Systems Review of Systems: CONSTITUTIONAL: Denies fever, chills, or sweats. EYES: Denies visual changes, redness, or discharge. ENT: Reports some rhinorrhea, congestion,scratchy throat, itchy ears. CARDIOVASCULAR: Denies chest pain, palpitations, or edema. RESPIRATORY: Denies cough or dyspnea. GASTROINTESTINAL: Denies abdominal pain, nausea, vomiting, or diarrhea. GENITOURINARY: Denies dysuria or hematuria. SKIN: Denies rash or itching. MUSCULOSKELETAL: Denies back pain, joint pain, or myalgia. NEUROLOGIC: Denies headache, numbness, or weakness. PSYCHIATRIC: Denies anxiety or depression. 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 Tinea corporis Surgical History Surgical History History of removal of cyst History of removal of skin mole Family History Family History Father Family history of gout Family history of hypercholesterolemia Mother Family history of diabetes mellitus in first degree relative Grandparent Family history of diabetes mellitus in first degree relative Family history of hypercholesterolemia Heart disease Acute myocardial infarction Social History Social History Alcohol intake: current Alcohol use details: a few drinks per year Substance use: never Spiritual care concerns: No Comments At time of signature, agree with nursing past medical, surgical, social and family history. There is no relevant family history pertinent to the presenting complaint Exam Narrative: GENERAL: Well-appearing, well-nourished, and in no acute distress. HEAD: Normocephalic, atraumatic. EYES: PERRLA and EOMI. ENT: Nares clear, clear rhinorrhea no epistaxis. Mucous membranes moist.TM's normal with good light reflex, throat pink with no lesions or exudates, tonsils enlarged with no redness or swelling, some post nasal drainage noted to back of throat NECK: Supple. no lymphadenopathy CHEST: Clear to auscultation. No respiratory distress.SAO2 99% on room air HEART: Regular rate and rhythm. No murmur heard. Normal peripheral pulses. ABDOMEN: Soft, nontender, nondistended, normal active bowel sounds. EXTREMITIES: Normal range of motion. No edema.
== END 2021-10-23 17:37 | disposition home or self-care (01) ==
PROVIDERS: Emergency Provider Registered Nurse; PCP Family Medicine
DX: J06.9 Acute upper respiratory infection, unspecified (principal); J45.909 Unspecified asthma, uncomplicated
CPT/HCPCS: 99211; G0463

== ENCOUNTER → 2022-08-08 07:01 | Outpatient (CLI) | payer OTHER, SELFPAY ==
--- NOTE | ~2022-08-08 | MR_ITS ---
MRI of the brain Clinical History: Headache Technique: Axial and sagittal T1-weighted images were acquired. These were followed by axial T2-weigh zeina, diffusion weighted, gradient, and FLAIR images. Findings: No abnormal signal seen in the brain parenchyma. No acute infarct, intracranial hemorrhage, or mass lesion. Ventricles and subarachnoid spaces are unremarkable. Orbits are unremarkable. Paranasal sinuses and m astoid air cells are clear. Major intracranial flow voids are intact. Sagittal midline structures are intact. IMPRESSION: Unremarkable exam. Reviewed, dictated and finalized at location M. IMPRESSION: Unremarkable exam.
== END ==
PROVIDERS: PCP Family Medicine; Visit Provider Physician Assistant
DX: R51.9 Headache, unspecified (principal)
CPT/HCPCS: 70551

== ENCOUNTER 2024-11-07 16:14 | Emergency (ER) | payer OTHER, SELFPAY ==
--- NOTE | 2024-11-07 16:16 | ED.URI ---
HPI - URI/Sore Throat General Chief Complaint: Upper Respiratory Infection Stated Complaint: fever Time Seen by Provider: 11/07/24 16:16 Source: patient Mode of arrival: ambulatory Limitations: no limitations History of Present Illness HPI Narrative: Patient is a 34-year-old female who presents with intermittent fever, sore throat, fatigue, body aches and left ear pain for 2 days. Highest fever of 100.8. States ear pain has improved today but still feels muffled. Has used throat spray and gargled with cayenne pepper. Has not taken any Tylenol or ibuprofen. Family members also have similar symptoms Related Data Allergies Allergy/AdvReac Type Severity Reaction Status Date / Time peppermint Allergy Intermediate HIVES, Verified 11/07/24 16:30 swelling of eyes Review of Systems Review of Systems: All systems reviewed & are unremarkable except as noted in HPI and below Constitutional: Constitutional: Reports body ache(s), Denies chills, Reports fatigue, Reports fever(s), Denies headache(s), Denies malaise and Denies weakness Eyes: Eyes: Denies blurry vision, Denies irritation and Denies loss of vision ENT: Reports otalgia, Denies headache(s), Denies nasal discharge, Denies sinus pain and Reports sore throat Cardiovascular: Cardiovascular: Denies chest pain, Denies irregular heart rhythm and Denies dyspnea Respiratory: Respiratory: Denies dyspnea Gastrointestinal: Gastrointestinal: Denies abdominal pain, Denies melena, Denies hematochezia, Denies diarrhea, Denies nausea and Denies vomiting Musculoskeletal: Musculoskeletal: Denies back pain, Denies myalgias and Denies arthralgias Integumentary/Breasts: Skin/Breast: Denies pruritus and Denies rash Neurologic: Denies headache(s), Denies loss of vision and Denies weakness Psychiatric: Psychiatric: Reports no additional psychiatric complaints Endocrine: Endocrine: Denies fatigue Allergic/Immunologic: Allergic/Immunologic: Denies itchy eyes PMFSH Past Medical History Medical History Asthma Tinea corporis 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 , delivered Overweight (BMI 25.0-29.9) History of pre-eclampsia Gestational hypertension Gestational diabetes Chondromalacia of patella, right Patellar instability of both knees Surgical History Surgical History History of removal of cyst History of removal of skin mole Family History Family History Father Family history of gout Family history of hypercholesterolemia Mother Family history of diabetes mellitus in first degree relative Grandparent Family history of diabetes mellitus in first degree relative Family history of hypercholesterolemia Heart disease Acute myocardial infarction Social History Social History Smoking status: Never smoker Alcohol intake: current Substance use: never Substance use type: does not use Do You Feel Safe in your Home?: Yes Lack of Transportation: No Lack of Food: Never True Current Housing: I Have Housing Concerned About Future Housing: No Difficulty Paying Gas/Electric Bills: No Difficulty Paying for Meds: No Currently Unemployed: No Education: Bachelor's Degree Difficulty w/ Childcare or Family Care: No Living arrangements: with family Spiritual care concerns: No Comments At time of signature, agree with nursing past medical, surgical, social and family history. There is no relevant family history pertinent to the presenting complaint. Exam Const: General: cooperative, healthy appearing, comfortable, no acute distress and well nourished Nutritional Appearance: well nourished Orientation/consciousness: patient oriented x3 Limitations: no limitations HENMT: Head: normal to inspection, normocephalic and atraumatic Ears: hearing grossly normal bilaterally, external ears normal and TM abnormal wth effusion serous bilateral Face/Nose/Sinus: Normal external nose present, normal facial exam and face symmetric Face and sinus: normal facial exam and face symmetric Mouth: Yes lip normal Teeth and gingiva: dentition normal Throat: posterior oropharynx normal, uvula midline and abnormal tonsil bilateral hypertrophy 3+ and pitting Eyes: General: appearance normal, both eyes and all related structures Alignment and Position: alignment normal and position normal Periorbital: periorbital findings normal Eyelids: eyelids normal Pupils: Equal, round and reactive pupils present EOM: EOMs intact bilaterally Neck: Neck: normal visual inspection, full ROM and supple Chest: Chest palpation & inspection: normal inspection of the chest Resp: Effort & Inspection: normal respiratory effort and able to speak in complete sentences Auscultation: clear to auscultation bilaterally Cardio: Rate: regular rate Rhythm: regular rhythm Heart sounds: S1 normal heart sound present and S2 normal heart sound present GI: Inspection: normal to inspection Skin: General skin exam: normal color and no rashes or lesions noted Neuro: General: patient oriented x3 and moves all extremities Cranial nerves: Yes Equal, round and reactive pupils present Speech: normal speech Gait exam (Neuro): Normal gait present Extrem: General: normal to inspection, full ROM and no edema Psych: Appearance: grossly normal and well kempt Mental Status: mental status grossly normal Speech and movement: Normal speech and movement present Affect: normal affect Attitude: cooperative Thought process: Normal thought process present Course Course Emergency Course: Patient is aware of diagnosis, understands and agrees to treatment plan. Anticipatory guidance given. Patient agrees to follow-up as directed and is aware of reasons to seek care at the emergency department. Portions of this record may have been created with voice recognition software Level of Care: Express Care Visit Vital Signs Vital signs: Vital Signs Temperature 36.7 C 11/07/24 16:25 Pulse Rate 83 11/07/24 16:25 Respiratory Rate 18 11/07/24 16:25 Blood Pressure 143/83 H 11/07/24 16:25 Pulse Oximetry 99 11/07/24 16:25 Oxygen Delivery Room Air 11/07/24 16:25 Temperature 36.7 C 11/07/24 16:25 Pulse Rate 83 11/07/24 16:25 Respiratory Rate 18 11/07/24 16:25 Blood Pressure 143/83 H 11/07/24 16:25 Pulse Oximetry 99 11/07/24 16:25 Oxygen Delivery Room Air 11/07/24 16:25 Reviewed MDM - URI/Sore Throat MDM Narrative Medical decision making narrative: Pt well hydrated appearing, in no respiratory distress, hemodynamically stable. Recommend supportive care. The patient is stable at time of discharge the clinical impression was discussed and the patient was given the opportunity to ask questions, which were addressed as completely as possible given the information available at present. Anticipatory guidance and return to care precautions were discussed and the importance of primary care follow-up was stressed and encouraged. The patient voiced understanding of the plan, indications to return, and the need for follow-up. Exam findings show no acute concerns or changes Patient is appropriate for outpatient treatment and follow-up. Differential diagnosis considered: Romero virus, strep pharyngitis, allergic rhinitis, upper respiratory tract infection, sinusitis, rhinosinusitis, nasopharyngitis. viral pharyngitis, otitis media, otitis externa, otitis effusion, foreign body, cerumen impaction, viral syndrome, and influenza.? Medical Records Attestation: I reviewed the patient's medical records. Lab Data Attestation: I reviewed the patient's lab results. Labs: Lab Results 11/07/24 Range/Units 17:01 POC Influenza A Ag Negative (Negative) POC Influenza B Ag Negative (Negative) POC SARS CoV-2 Ag Negative (Negative) POC Grp A Strep Screen Negative (Negative) Discharge Plan Discharge Clinical Impression: Upper respiratory infection, viral Patient Disposition: Home Condition: Stable Instructions: Upper Respiratory Infection (ED) Additional Instructions: Your rapid strep swab was negative today at [facility]. A throat culture will be sent to the laboratory for further testing. If the test is positive, you will receive a phone call within 48 hours and an appropriate antibiotic will be initiated at that time. Your Covid and flu are both negative Your symptoms are likely due to a viral illness, which is not treated with antibiotics. Viral symptoms can be present for up to a few weeks. -For pain/fever, you may take: Tylenol 650-1000mg by mouth every 4-6 hours. Do not exceed 4000mg in 24 hours. Advil (Ibuprofen) 600 mg by mouth every 6 hours. Do not exceed 2400mg in 24 hours. 8 AM: Tylenol 11 AM: Ibuprofen 2 PM: Tylenol 5 PM: Ibuprofen 8 PM: Tylenol 11 PM: Ibuprofen 2 AM: Tylenol 5 AM: Ibuprofen -Antihistamine medication such as Benadryl/Zyrtec at night and Claritin/Jessie during the day can help improve symptoms. -Use Flonase twice a day for 5 days then daily to help reduce the inflammation and dry up your sinuses. -You can also use Sudafed behind the pharmacy counter(12 or 24 hour). Be sure to drink plenty of water with these medications at least 8 ounces with every dose and it is important to drink 8 to 10 glasses of water per day. Water is a natural decongestant -Eat and drink things that are easy to swallow, like tea or soup, or popsicles. -Oral rinses such as: Salt water gargles and/or may use topical anesthetic (eg. Chloraseptic spray) or lozenges to relieve dryness or throat pain). -Frequent hand washing or hand store standards associate is one of the best ways to prevent spread of infection. -Using a vaporizer or humidifier at night will also help thin secretions and help with coughing up phlegm. Call your Primary Care Doctor and make a follow-up appointment in 3 days. If your cough worsens, you develop a fever greater than 103, you develop shaking chills, a fast heartbeat, trouble breathing and/or feel you are are breathing much faster than usual, call your Primary Care Doctor or go to the ER. Patient Language: [place] Prescriptions: New fluticasone propionate [Flonase Allergy Relief] 50 mcg/actuation spray,suspension 1 spray intranasal DAILY Qty: 16 0RF Rx Instructions: administer into each nostril Follow-up/Referrals: Zita Adorno MD [Primary Care Provider] - 3 Days Time of Disposition: 17:00
[2024-11-07 16:25] VITALS: BP 143/83; PULSE 83; RESP 18; TEMP 36.7; O2SAT 99
[2024-11-07 17:03] LABS: EDCOVIDSCREEN Negative (Negative); EDINFLUASCREEN Negative (Negative); EDINFLUBSCREEN Negative (Negative); EDSTREPNEGPOS1 Negative (Negative)
== END 2024-11-07 17:04 | disposition home or self-care (01) ==
PROVIDERS: Emergency Provider Nurse Practitioner Family; PCP Family Medicine
DX: J06.9 Acute upper respiratory infection, unspecified (principal); Z20.822 Contact with and (suspected) exposure to COVID-19; J45.909 Unspecified asthma, uncomplicated
CPT/HCPCS: 87081; 87426; 87804; 87880; 99213; G0463